=== PATIENT | female | born 1950 | race Caucasian/White ===

== ENCOUNTER → 2018-03-20 08:46 | Outpatient (CLI) | payer MEDICARE, SELFPAY ==
[2018-03-20 10:15] LABS: Absolute Lymphocyte Count 1.19 X10^3/ul (0.83-4.51); Absolute Neutrophil Count 4.3 X10^3/uL (2.0-7.7); Basophil# 0.05 X10^3/uL; Basophil% 0.8 % (0-1); Eosinophil# 0.13 X10^3/uL; Eosinophils% 2.1 % (0-5); Hematocrit 41.9 % (37-47); Hemoglobin 13.8 g/dl (12.0-15.0); Lymphocyte # 1.19 X10^3/ul (4.0); Lymphocyte % 19.3 % (19-41); Mean Corp Hgb Conc 32.9 g/gl (32-36); Mean Corpuscular Hgb 31.7 pg (27.0-32.0); Mean Corpuscular Volume 96.1 fL (81-99); Mean Platelet Vol. 11.1 fl (6.2-12.0); Monocyte% 8.1 % (0-10); Neutrophil # 4.27 X10^3/uL (2.7-7.7); Neutrophil % 69.5 % (47-70); Platelet Count 231 K/mm3 (150-450); RBC Distribution Width CV 12.6 % (11.6-14.6); RBC Distribution Width SD 43.5 fl (35.1-43.9); Red Blood Count 4.36 M/mm3 (4.2-5.4); White Blood Count 6.2 K/mm3 (4.4-11.0)
[2018-03-20 10:27] LABS: AST(SGOT) 27 U/L (15-37); Alanine Aminotransfer ALT/SGPT 28 U/L (13-56); Albumin, Serum 3.7 g/dL (3.2-5.0); Alkaline Phosphatase 81 U/L (45-117); Anion Gap 6 (5-15); BUN 14 mg/dL (7-18); BUN/Creat Ratio 20.3 RATIO (10-20); Bilirubin, Direct 0.16 mg/dL (0.00-0.30); Calcium,Total 8.8 mg/dL (8.5-10.1); Chloride 108 mmol/L (98-107); Cholesterol 154 mg/dL (200); Creatinine, Serum 0.69 mg/dL (0.55-1.02); EST Glomerular Filtration Rate 90 mL/min (>60); Est Glom Filt Rate - Afr Amer 108 mL/min (>60); Globulin 3.9 g/dL (2.2-4.2); Glucose 84 mg/dL (74-106); High Density Lipoprotein 93 mg/dL; Potassium 4.3 mmol/L (3.5-5.1); Protein, Total 7.6 g/dL (6.4-8.2); Sodium Level 142 mmol/L (136-145); Triglycerides 57 mg/dL; Very Low Density Lipoprotein 11 mg/dL (5-40)
[2018-03-20 10:32] LABS: POSITIVE COUNT NO; POSITIVE DIFFERENTIAL NO; POSITIVE MORPHOLOGY NO
[2018-03-20 13:18] LABS: Vitamin D,25 Hydroxy 60.8 ng/mL (29.95-100.01)
== END ==
PROVIDERS: Family Provider Internal Medicine; PCP Internal Medicine; Visit Provider Internal Medicine
DX: E55.9 Vitamin D deficiency, unspecified (principal); E78.00 Pure hypercholesterolemia, unspecified
CPT/HCPCS: 36415; 80048; 80061; 80076; 82306; 85025

== ENCOUNTER → 2018-05-12 13:58 | Outpatient (CLI) | payer MEDICARE, SELFPAY | PROVIDERS: Family Provider Internal Medicine; PCP Internal Medicine; Visit Provider Internal Medicine | DX: M54.5 Low back pain (principal); M25.551 Pain in right hip | CPT/HCPCS: 72110; 73502 ==

== ENCOUNTER → 2018-08-05 14:54 | Outpatient (CLI) | payer MEDICARE, SELFPAY ==
[2018-06-10 13:24] VITALS: BMI 20.5
--- NOTE | 2018-08-05 14:56 | BD_ITS ---
STUDY: DUAL ENERGY X-RAY ABSORPTIOMETRY / DXA REASON FOR EXAM: Female, 68 years old. The patient is postmenopausal. No loss of height. TECHNIQUE: Bone Mineral Density (BMD) measurements of lumbar spine and bilateral hips were obtained. COMPARISON: Comparison is made with prior study dated July 26, 2016. FINDINGS: Lumbar Spine (L1-L4): g/cm2 (1.445) / T-score (2.0) / Z-score (3.7) Findings are suggestive of normal bone density with a low fracture risk. Left Femur Total: g/cm2 (0.758) / T-score (-2.0) / Z-score (-0.5) Left Femoral Neck: g/cm2 (0.834) / T-score (-1.5) / Z-score (0.2) Right Femur Total: g/cm2 (0.764) / T-score (-1.9) / Z-score (-0.5) Right Femoral Neck: g/cm2 (0.743) / T-score (-2.1) / Z-score (-0.4) The T-Scores on the most recent prior examination were: Lumbar Spine (L1-L4): There has been improvement of bone density since the previous examination. Left Femur Total: which represents a worsening of 3.9%. Right Femur Total: which represents a worsening of 4.4%. BD/Dexa Bone Density Study IMPRESSION: The patient is considered osteopenic as outlined below according to World [place] Organization (WHO) criteria with a moderate fracture risk. There has been worsening of bone density since the previous examination. Reference Information: The T-score is the number of standard deviations above or below the standard which is normal for young adults at their peak bone mineral density. The World Health Organization (WHO) interprets the T-scores as follows: Above -1 Normal bone density Between -1 and -2.5 Osteopenia Equal to / or below -2.5 Osteoporosis As a practical clinical guideline, osteopenia may be graded as follows: Mild -1 through -1.5 Moderate -1.6 through -2.0 Severe -2.1 through -2.4 The Z-score is the number of standard deviations above or below age-matched controls. A Z-score of less than -1.5 would be considered abnormal. References: 1. NIH Osteoporosis and Related Bone Diseases http://www.osteo.org 2. International Society for Clinical Densitometry http://www.iscd.org 3. National Osteoporosis Foundation http://www.nof.org Electronically Signed: Main Owen MD at 7:55 EST Tel [phone], Service support ,
== END ==
PROVIDERS: Family Provider Internal Medicine; PCP Internal Medicine; Referring Provider Internal Medicine; Visit Provider Internal Medicine
DX: Z78.0 Asymptomatic menopausal state (principal)
CPT/HCPCS: 77080

== ENCOUNTER → 2018-08-08 13:10 | Outpatient (CLI) | payer MEDICARE, SELFPAY ==
[2018-06-10 13:24] VITALS: BMI 20.5
--- NOTE | 2018-08-08 12:55 | BI_ITS ---
MAMMOGRAPHY - BILATERAL SCREENING REASON FOR EXAM: Female, 68 years old. Routine annual screening examination. PERTINENT HISTORY: Non-contributory. TECHNIQUE: Digital bilateral breast riley (3D mammographic acquisition) in the CC and MLO projections. 2-D mediolateral oblique (MLO) and craniocaudad (CC) views of both breasts were obtained. CAD: Full Field Digital Mammography with Computer Added Detection was performed. COMPARISON: Comparison is made with prior study dated August 06, 2017 and May 31, 2016. FINDINGS: Breast Composition: There are scattered areas of fibroglandular density. There are no dominant masses or suspicious calcifications. Stable 3.9 mm x 2.8 mm well-defined nodule in the deep slightly lateral portion of the left breast. On prior ultrasound, this was demonstrated to be a small hypoechoic nodule. No other significant abnormalities are identified. There has been no significant change since the prior study. BI/SCREENING MAMM (CAD), BILAT IMPRESSION: Stable bilateral screening mammogram. Yearly follow-up mammogram recommended. (A) ASSESSMENT CATEGORY: BIRADS Category 2: Benign. A letter regarding these results will be sent to the patient by the facility within 30 days. Approximately 10% of breast cancers are not detected by mammography. A normal mammogram should not delay biopsy of a clinically suspicious abnormality. [id number] Electronically Signed: Main Owen MD at 9:38 EST Tel [phone], Service support ,
== END ==
PROVIDERS: Family Provider Internal Medicine; PCP Internal Medicine; Referring Provider Nurse Practitioner Women's Health; Visit Provider Nurse Practitioner Women's Health
DX: Z12.31 Encounter for screening mammogram for malignant neoplasm of breast (principal)
CPT/HCPCS: 77063; 77067

== ENCOUNTER 2019-04-29 09:54 | Outpatient (RCR) | payer MEDICARE, SELFPAY ==
[2019-01-13 13:23] VITALS: BMI 20.5
--- NOTE | 2019-04-29 10:58 | HP.PTEVAL_ITS ---
Patient's Visit Information LONNIE GIBBONS is a 68 year old F referred to Physical Therapy by Leanna Lane MD with a diagnosis of L sciatica. Date of Evaluation: 04/29/19 Physical Therapist: Brennen Calvert, MORGAN, OCS, CSCS - Visit Plan Frequency: 1x/Week Duration: 4-6 Weeks Plan: weekly x 4-6 to progress HEP(gave LE rotation and ext this week) progress to quad and HS and core strength adn body mechanics. Next bugs and quad and HS strength. - Subjective Findings: Have had diagnosis of sciatica for pain that has been present about a month. She was working outside and LB hurt. Chiropractor visit helped. She lifted and carried up steps the next day and strained things. L leg is numb for a month. Not bad but doesn't feel right consistently. Pain is L laeral hip and in LB and can be L groin at times. Saw Dr. Finch last week and will have Catscan and Latonia visit due to hernia surgery last year to make sure it is fine. Pain is constant. It was severe a month ago and could not stand up 8- 10/10 at all times. She was given oxycodone and naproxen. Has tried heat and ice adn acupuncture. Currently at 4/10 constantly. L leg feels weak. Pain is improving, weakness and numbness is not. Sleep is OK now. More comfortable now. HEP is doing decompression lying, piriformis stretch. Not employed. Enjoys outdoor work 5 acres and is unable to be out there due to this. Basic aDLS are getting done now, they were rough at first. Stretching last night made pain worse, upper body stretching. No problems with coughing or sneezing or bearing down, no c/o urinary problems. - Pain L LB and hip Pain Intensity (Out of 10): 4 Pain Intensity Range: 4 - Objective Walks stiff but I, trasnfers I supine and sit(says she would not have been able to a couple weeks ago). L/S ext max limited adn L pain, L SB hurts, R SB normal, flexion full and without pain today. reflexes 2/3 patella and achilles. Sensation diminished to gross light touch in later thigh L. Strength is 4/5 in hips and 4+ in ankles B but L quad 4- adn HS 4- vs 4+ on R. Repeated ext increases motion slightly in L/S. - L S compression test today. - Goals Goal 1:: Ful lL/S aROM without pain Goal Time Frame: 2-4 Weeks Goal 2:: symmetrical quad and HS strength B LE Goal Time Frame: 4-6 Weeks Goal 3:: Patient feel 90% back to normal with pain 1/10 at worst Goal Time Frame: 4-6 Weeks Goal 4:: Patient feel back to 100% activities without hesitation or pain increase. Goal Time Frame: 4-6 Weeks - Rehabilitation Potential Physical Therapy Diagnosis: L sciatica with leg weakness. Rehabilitation Potential: Fair - Anticipated Interventions Patient/Client Instruction: Educate patient on: Condition, Plan of Care For the Purpose of:: To decrease pain, To increase ROM, To improve muscle performance and motor function, To improve ability of physical actions for home/community/work/leisure, To improve gait and locomotor functions Therapeutic Exercise to Include: Strength training, Postural training, Flexibilty training, Gait and locomotor training, Passive ROM, Active ROM For the Purpose of:: To decrease pain, To increase ROM, To improve muscle performance and motor function, To improve ability of physical actions for home/community/work/leisure, To improve gait and locomotor functions Thank you for the opportunity to evaluate your patient. For Medicare and Medicare HMO plans, please review the plan of care and approve it. It will need to be FAXED BACK to us at [phone] for Medicare purposes. For Medicare only, by signing this I certify the plan of care. Please let me know if there are questions or concerns regarding this plan of care. Physician Signature: Date:
--- NOTE | 2019-06-10 12:09 | HP.PTDCNRP_ITS ---
HP - Discharge Summary (1) - Patient Information LONNIE GIBBONS was seen in my office for initial evaluation on 04/29/19. The following Plan of Care was established for this patient: Initial Frequency: 1x/Week Initial Duration: 4-6 Weeks - Anticipated Interventions Patient/Client Instruction: Educate patient on: Condition, Plan of Care For the Purpose of:: To decrease pain, To increase ROM, To improve muscle perfo rmance and motor function, To improve ability of physical actions for home/community/work/leisure, To improve gait and locomotor functions Therapeutic Exercise to Include: Strength training, Postural training, Flexibilty training, Gait and locomotor training, Passive ROM, Active ROM For the Purpose of:: To decrease pain, To increase ROM, To improve muscle performance and motor function, To improve ability of physical actions for home/community/work/leisure, To improve gait and locomotor functions This patient was last seen in our office 04/29/19. Pertinent comments regarding their Physical therapy will appear below: Pt seen for evaluation and POC established but patient cancelled and did not wish to reschedule. Will discontinue at patient request. At this point I will be discontinuing this patient from physical therapy. I would be happy to see this patient again in the future if found appropriate by the physician. Thank you! Brennen Calvert, DPT, OCS, CSCS
== END 2019-04-29 19:00 | disposition home or self-care (01) ==
LOC: PT 09:54
PROVIDERS: Family Provider Internal Medicine; PCP Internal Medicine; Referring Provider Internal Medicine; Visit Provider Internal Medicine
DX: M54.32 Sciatica, left side (principal)
CPT/HCPCS: 97110; 97162

== ENCOUNTER → 2019-05-04 | Outpatient (CLI) | payer MEDICARE, SELFPAY ==
[2019-01-13 13:23] VITALS: BMI 20.5
--- NOTE | 2019-05-04 15:59 | CT_ITS ---
HISTORY:LT GROIN PAIN into left hip x one month. Hx of prior bilateral inguinal hernia repair 4 yr ago. LT GROIN PAIN into left hip x one month. Hx of prior bilateral inguinal hernia repair 4 yr ago. EXAMINATION: CT Pelvis W/ Contrast TECHNIQUE:Routine noncontrast bone CT protocol was performed of the pelvis. 2-D reformats were performed by the technologist. A radiation dose optimization technique was used for this scan. IV Contrast dosage and agent: 100 cc of Isovue-300 Oral contrast was utilized. COMPARISON: None FINDINGS: BONES/JOINTS: No acute fracture or subluxation. Normal alignment. There is mild central joint space narrowing bilaterally involving the hips. There is a prominent superior right acetabulum as well as calcification of a portion of the transverse ligament. Bone island seen at the right head neck junction Enthesophytes are seen at the ischial tuberosities as well as at the greater trochanters.. Degenerative changes are seen within the lumbar spine with decreased disc space at L3-4, L4-5 and L5-S1. Suspect dextroscoliosis of the lumbar spine and incompletely visualized SOFT TISSUES: No soft tissue swelling or gas. No radiopaque foreign body. Intrapelvic contents: There is no evidence of aneurysm. No mechanical obstruction. No diverticulitis. Left adnexal cyst measuring [address]/Pelvis WITH IV Contrast IMPRESSION: Degenerative changes of the hips greater on the right as discussed Left adnexal cyst Individualized dose optimization techniques were used for this CT. at 1941 Reported and signed by: Adenike Barone DO Electronically Signed: Adenike Barone DO at 18:40 EDT Tel , Service support ,
[2019-05-04 16:16] LABS: CREATININE FINGERSTICK < 0.6 mg/dL (0.55-1.02)
== END | disposition home or self-care (01) ==
LOC: CT 15:54
PROVIDERS: Family Provider Internal Medicine; PCP Internal Medicine; Referring Provider Internal Medicine; Visit Provider Internal Medicine
DX: R10.32 Left lower quadrant pain (principal)
CPT/HCPCS: 72193; Q9967

== ENCOUNTER → 2019-05-12 | Outpatient (CLI) | payer MEDICARE, SELFPAY ==
[2019-05-05 08:49] VITALS: BMI 20.3
[2019-05-12 12:15] LABS: Absolute Lymphocyte Count 1.13 X10^3/uL (0.83-4.51); Absolute Neutrophil Count 6.2 X10^3/uL (2.0-7.7); Basophil# 0.05 X10^3/uL; Basophil% 0.6 % (0-1); Eosinophil# 0.09 X10^3/uL; Eosinophils% 1.1 % (0-5); Hematocrit 43.4 % (37-47); Hemoglobin 14.4 g/dL (12.0-15.0); Lymphocyte # 1.13 X10^3/ul (4.0); Lymphocyte % 14.2 % (19-41); Mean Corp Hgb Conc 33.2 g/dL (32-36); Mean Corpuscular Hgb 32.4 pg (27.0-32.0); Mean Corpuscular Volume 97.5 fL (81-99); Mean Platelet Vol. 10.9 fl (6.2-12.0); Monocyte# 0.47 X10^3/uL; Monocyte% 5.9 % (0-10); NRBC Flagged by Analyzer 0 % (0-5); Neutrophil % 78.1 % (47-70); Platelet Count 266 K/mm3 (150-450); RBC Distribution Width CV 12.2 % (11.6-14.6); Red Blood Count 4.45 M/mm3 (4.2-5.4)
[2019-05-12 12:40] LABS: ALB/GLOB Ratio 0.9 RATIO (0.9-2.4); AST(SGOT) 23 U/L (15-37); Alanine Aminotransfer ALT/SGPT 27 U/L (13-56); Albumin, Serum 3.8 g/dL (3.2-5.0); Alkaline Phosphatase 73 U/L (45-117); Anion Gap 5 (5-15); BUN 15 mg/dL (7-18); BUN/Creat Ratio 21.7 RATIO (10-20); Calcium,Total 9.4 mg/dL (8.5-10.1); Chloride 107 mmol/L (98-107); Creatinine, Serum 0.69 mg/dL (0.55-1.02); EST Glomerular Filtration Rate 89 mL/min (>60); Est Glom Filt Rate - Afr Amer 108 mL/min (>60); Globulin 4.3 g/dL (2.2-4.2); Glucose 91 mg/dL (74-106); Protein, Total 8.1 g/dL (6.4-8.2); Sodium Level 140 mmol/L (136-145)
[2019-05-12 12:49] LABS: Vitamin D,25 Hydroxy 52.4 ng/mL (29.95-100.01)
[2019-05-13 15:28] LABS: CHOLESTEROL TOTAL 172 mg/dL (100-199); HDL-C 87 mg/dL (>39); HDL-P TOTAL 38.3 umol/L (>=30.5); SMALL LDL-P <90 nmol/L (<=527); TRIGLYCERIDES 104 mg/dL (0-149)
[2019-05-13 16:47] LABS: INSULIN RESISTANCE SCORE <25 (<=45); LDL SIZE 21.1 nm (>20.5); LDL-C 64 mg/dL (0-99); LDL-P 506 nmol/L (<1000)
== END | disposition home or self-care (01) ==
LOC: MTLAB 10:20
PROVIDERS: Family Provider Internal Medicine; PCP Internal Medicine; Referring Provider Internal Medicine; Visit Provider Internal Medicine
DX: E55.9 Vitamin D deficiency, unspecified (principal); E78.00 Pure hypercholesterolemia, unspecified
CPT/HCPCS: 36415; 80053; 80061; 82306; 83704; 85025

== ENCOUNTER → 2019-06-15 | Outpatient (CLI) | payer MEDICARE, SELFPAY ==
[2019-05-05 08:49] VITALS: BMI 20.3
[2019-06-15 13:04] VITALS: BMI 20.3
--- NOTE | 2019-06-15 13:37 | ECHOD_ITS ---
Reason For Study: RBBB Procedure This was a 2D Doppler, Color Flow transthoracic echocardiogram. Exam performed in department. Left Ventricle Normal LV size. Left ventricular systolic function is normal. The estimated ejection fraction is 65 %. Stage 2 diastolic dysfunction. No regional wall motion abnormalities noted. Right Ventricle Normal RV size. Normal systolic function. Atria Normal left atrium. Normal right atrium. Mitral Valve Normal mitral valve. Tricuspid Valve Normal tricuspid valve. Mild (1+) tricuspid valve insufficiency. Pulmonary artery systolic pressure is 38 mmHg. Aortic Valve Normal aortic valve. Trisinus/trileaflet aortic valve. Pulmonic Valve Normal pulmonic valve. Great Vessels Normal aortic root. The pulmonary artery is normal size. Normal inferior vena cava. Pericardium/Pleural No pericardial effusion. MMode/2D Measurements & Calculations LVIDd: 3.8 cm IVSd: 1.2 cm Ao root diam: 2.8 cm LVIDs: 2.2 cm LVPWd: 0.93 cm RVDd: 3.4 cm FS: 42.6 % LAV(MOD-bp): 30.5 ml LVAd ap4: 21.4 cm2 SV(MOD-sp4): 37.9 ml LAV(MOD-bp) Indexed: 18.1 ml/m2 EDV(MOD-sp4): 54.8 ml LAV(MOD-sp2): 47.3 ml EDV(sp4-el): 55.5 ml LAV(MOD-sp4): 19.4 ml LVAs ap4: 10.5 cm2 ESV(MOD-sp4): 16.9 ml ESV(sp4-el): 17.0 ml EF(MOD-sp4): 69.2 % EF(sp4-el): 69.4 % SV(sp4-el): 38.5 ml LA A4 area: 10.7 cm2 LA dimension(2D): 3.6 cm RA A4 area: 13.5 cm2 Doppler Measurements & Calculations MV E max jeffy: 83.6 cm/sec Lat Peak E' Jeffy: 6.9 cm/sec Med Peak E' Jeffy: 5.7 cm/sec MV A max jeffy: 99.2 cm/sec E/E' lat: 12.1 E/E' med: 14.6 MV E/A: 0.84 Ao V2 max: 143.7 cm/sec LV V1 max: 123.2 cm/sec PA V2 max: 101.9 cm/sec Ao max P.3 mmHg LV V1 max P.1 mmHg Ao V2 mean: 97.1 cm/sec Ao mean P.2 mmHg Ao V2 VTI: 32.7 cm TR max jeffy: 293.7 cm/sec TR max P.5 mmHg Interpretation Summary Normal LV size. Left ventricular systolic function is normal. Mild (1+) tricuspid valve insufficiency. Pulmonary artery systolic pressure is 38 mmHg. The estimated ejection fraction is 65 %. Stage 2 diastolic dysfunction. Ordering Physician: Alison Finch Referring Physician: Alison Finch Performed By: Maru Noland, MEGHA, RVT
--- NOTE | 2019-06-15 13:48 | RAD_ITS ---
STUDY: X-RAY CHEST REASON FOR EXAM: Female, 68 years old. Normal PFTs. TECHNIQUE: PA and lateral views of the chest. COMPARISON: June 05, 2016 FINDINGS: Lungs are hyperexpanded. There is chronic interstitial changes without acute infiltrate or mass. There is no demonstrated pleural abnormality. Normal size heart. Normal mediastinum and rosalind. Normal visualized pulmonary arteries. Normal visualized aortic arch and descending thoracic aorta. Stable degenerative changes and scoliosis Normal visualized ribs, clavicles, and shoulders. There is no demonstrated abnormality of the visualized soft tissue structures of the upper abdomen. RAD/Chest PA and Lateral IMPRESSION: No acute cardiopulmonary disease or major interval change. Electronically Signed: Og Han DO at 22:59 EDT Tel [phone], Service support ,
== END | disposition home or self-care (01) ==
LOC: CVS 13:35
PROVIDERS: Family Provider Internal Medicine; PCP Internal Medicine; Referring Provider Internal Medicine; Visit Provider Internal Medicine
DX: I45.2 Bifascicular block (principal); R94.2 Abnormal results of pulmonary function studies
CPT/HCPCS: 71046; 93306

== ENCOUNTER → 2019-08-10 12:51 | Outpatient (CLI) | payer MEDICARE, SELFPAY ==
[2019-06-15 13:04] VITALS: BMI 20.3
--- NOTE | 2019-08-10 12:53 | BI_ITS ---
MAMMOGRAPHY - BILATERAL SCREENING 3-D TOMOSYNTHESIS REASON FOR EXAM: Female, 69 years old. Routine annual screening examination. PERTINENT HISTORY: No significant family history. TECHNIQUE: 2-D mammograms and 3-D Tomosynthesis of the breast (s) were performed. CAD was performed. COMPARISON: August 08, 2018, August 06, 2017 FINDINGS: The breast composition is almost entirely fat. Stable circumscribed nodule in the left breast. Scattered benign calcifications are seen. No dense spiculated masses or suspicious microcalcifications are identified. No architectural distortion is identified. There is no skin thickening or retraction. There has been no significant change since the prior study. BI/SCREEN MAMM (CAD) W/JUAN J BILAT IMPRESSION: No mammographic signs of malignancy. Routine yearly mammograms recommended. ASSESSMENT CATEGORY: BIRADS Category 2: Benign. A letter regarding these results will be sent to the patient by the facility within 30 days. FOLLOW UP RECOMMENDATION: Yearly follow up mammogram recommended. (A) Approximately 10% of breast cancers are not detected by mammography. A normal mammogram should not delay biopsy of a clinically suspicious abnormality. Electronically Signed: Nolberto Lew MD at 17:37 EST , Service support ,
== END ==
PROVIDERS: Family Provider Internal Medicine; PCP Internal Medicine; Referring Provider Nurse Practitioner Women's Health; Visit Provider Nurse Practitioner Women's Health
DX: Z12.31 Encounter for screening mammogram for malignant neoplasm of breast (principal)
CPT/HCPCS: 77063; 77067

== ENCOUNTER 2019-10-20 09:30 | Outpatient (RCR) | payer MEDICARE, SELFPAY ==
[2019-06-15 13:04] VITALS: BMI 20.3
--- NOTE | 2019-10-05 15:37 | HP.PTEVAL ---
Patient's Visit Information LONNIE GIBBONS is a 69 year old F referred to Physical Therapy by Mark Moncada DPM with a diagnosis of R insertional achilles tendonitis. Date of Evaluation: 10/05/19 Physical Therapist: Stephane Fontenot, PT, ATC - Visit Plan Frequency: 2-3x /Week Duration: 4 Weeks Plan: R achilles stretching, DTR, foam roller, US, and HEP - Subjective Findings: Pt reports she has had R heel pain for several months. Pt reports she finally went to a doctor and had xrays taken which revealed a bone spur on the back of her R heel. Pt reports she was told she needed a steroid injection, but due to other health concerns, she was given Mobic which has helped to decrease her pain. Pt reports she has also been stretching which has helped her pain. Pt reports her hope is to be able to avoid surgery. Pt reports she is not limited with most acivity, but does note pain with prolonged walking. Pt reports her pain is also worse by the end of the day without pain meds. Pt notes sleep difficulty without pain meds. - Pain R post heel Pain Intensity (Out of 10): 3 Pain Intensity Range: 6 - Objective Neuro: B LE sensation is WNL to light touch. Palpation: Pt is very tender on the calcaneal tuberocity. No obvious deformity. ROM: L ankle DF= 5, PF= 60 degrees, R ankle DF= 3, PF= 60 degrees. MMT: B ankle s are 5/5 throughout. Gait: Pt has late pronation with gait secondary to pes cavus arch type - Goals Goal 1:: Decrease R heel pain x 50% to aid with increasing tolerance for ambulation Goal Time Frame: 2-4 Weeks Goal 2:: Increase B ankle DF x 10 degrees to aid with decreasing R heel pain Goal Time Frame: 2-4 Weeks Goal 3:: I with HEP Goal Time Frame: 2-4 Weeks - Rehabilitation Potential Physical Therapy Diagnosis: R heel pain and intolerance for prolonged ambulation secondary to R insertional achilles tendonitis Rehabilitation Potential: Good - Anticipated Interventions Patient/Client Instruction: Educate patient on: Condition, Plan of Care For the Purpose of:: To improve self management Therapeutic Exercise to Include: Flexibilty training, Passive ROM, Active ROM For the Purpose of:: To decrease pain, To increase ROM Manual Therapy Techniques to Include: Soft tissue mobilization For the Purpose of:: To decrease pain, To increase ROM Ultrasound (thermal/non thermal): Yes For the Purpose of:: To decrease pain Thank you for the opportunity to evaluate your patient. For Medicare and Medicare HMO plans, please review the plan of care and approve it. It will need to be FAXED BACK to us at [phone] for Medicare purposes. For Medicare only, by signing this I certify the plan of care. Please let me know if there are questions or concerns regarding this plan of care. Physician Signature: Date:
--- NOTE | 2019-12-17 18:45 | HP.PT.NRP ---
LONNIE GIBBONS was seen in my office for initial evaluation on 10/05/19. The following Plan of Care was established for this patient: Initial Frequency: 2-3x /Week Initial Duration: 4 Weeks Patient/Client Instruction: Educate patient on: Condition, Plan of Care For the Purpose of:: To improve self management Therapeutic Exercise to Include: Flexibilty training, Passive ROM, Active ROM For the Purpose of:: To decrease pain, To increase ROM Manual Therapy Techniques to Include: Soft tissue mobilization For the Purpose of:: To decrease pain, To increase ROM Ultrasound (thermal/non thermal): Yes For the Purpose of:: To decrease pain This patient was last seen in our office . Pertinent comments regarding their Physical therapy will appear below: Pt has had 5 PT visits for her R heel pain through the date of 10/20/2019. Pt has not returned through todays date and is therefore discontinued at this time. At this point I will be discontinuing this patient from physical therapy. I would be happy to see this patient again in the future if found appropriate by the physician. Thank you! Stephane Fontenot, PT, ATC
== END 2019-10-20 19:00 | disposition home or self-care (01) ==
LOC: PT 09:30
PROVIDERS: PCP Internal Medicine; Referring Provider Podiatrist Foot & Ankle Surgery; Visit Provider Podiatrist Foot & Ankle Surgery
DX: M76.61 Achilles tendinitis, right leg (principal)
CPT/HCPCS: 97035; 97110; 97161

== ENCOUNTER → 2020-05-18 07:59 | Outpatient (CLI) | payer MEDICARE, SELFPAY ==
[2019-06-15 13:04] VITALS: BMI 20.3
[2020-05-18 10:04] LABS: Absolute Lymphocyte Count 1.19 X10^3/uL (0.83-4.51); Absolute Neutrophil Count 2.9 X10^3/uL (2.0-7.7); Basophil# 0.06 X10^3/uL; Basophil% 1.2 % (0-1); Eosinophil# 0.18 X10^3/uL; Eosinophils% 3.7 % (0-5); Hematocrit 41.2 % (37-47); Hemoglobin 13.1 g/dL (12.0-15.0); Lymphocyte # 1.19 X10^3/ul (4.0); Lymphocyte % 24.7 % (19-41); Mean Corp Hgb Conc 31.8 g/dL (32-36); Mean Corpuscular Hgb 31.6 pg (27.0-32.0); Mean Corpuscular Volume 99.5 fL (81-99); Mean Platelet Vol. 11.3 fl (6.2-12.0); Monocyte# 0.48 X10^3/uL; NRBC Flagged by Analyzer 0 % (0-5); Neutrophil # 2.89 X10^3/uL (2.7-7.7); Neutrophil % 60.2 % (47-70); Platelet Count 235 K/mm3 (150-450); RBC Distribution Width CV 12.5 % (11.6-14.6); RBC Distribution Width SD 45.7 fl (35.1-43.9); Red Blood Count 4.14 M/mm3 (4.2-5.4); White Blood Count 4.8 K/mm3 (4.4-11.0)
[2020-05-18 10:28] LABS: Vitamin D,25 Hydroxy 66.6 ng/mL
[2020-05-18 10:39] LABS: ALB/GLOB Ratio 0.9 RATIO (0.9-2.4); AST(SGOT) 29 U/L (15-37); Alanine Aminotransfer ALT/SGPT 30 U/L (13-56); Albumin, Serum 3.6 g/dL (3.2-5.0); Alkaline Phosphatase 67 U/L (45-117); Anion Gap 3 (5-15); BUN 16 mg/dL (7-18); BUN/Creat Ratio 21.1 RATIO (10-20); Calcium,Total 8.8 mg/dL (8.5-10.1); Chloride 106 mmol/L (98-107); Cholesterol 158 mg/dL (200); Creatinine, Serum 0.76 mg/dL (0.55-1.02); EST Glomerular Filtration Rate 80 mL/min (>60); Est Glom Filt Rate - Afr Amer 96 mL/min (>60); Globulin 4.1 g/dL (2.2-4.2); Glucose 81 mg/dL (74-106); High Density Lipoprotein 94 mg/dL; Protein, Total 7.7 g/dL (6.4-8.2); Sodium Level 139 mmol/L (136-145); Thyroid Stim Hormone (TSH) 1.65 uIU/mL (0.358-3.74); Triglycerides 67 mg/dL; Very Low Density Lipoprotein 13 mg/dL (5-40)
== END ==
PROVIDERS: PCP Internal Medicine; Referring Provider Internal Medicine; Visit Provider Internal Medicine
DX: E55.9 Vitamin D deficiency, unspecified (principal); E78.00 Pure hypercholesterolemia, unspecified
CPT/HCPCS: 36415; 80053; 80061; 82306; 84443; 85025

== ENCOUNTER → 2020-08-09 13:11 | Outpatient (CLI) | payer MEDICARE, SELFPAY ==
[2019-06-15 13:04] VITALS: BMI 20.3
--- NOTE | 2020-08-09 13:21 | BD_ITS ---
STUDY: DUAL ENERGY X-RAY ABSORPTIOMETRY / DXA REASON FOR EXAM: Female, 70 years old. Age of claribel 48. Pat is 128# and 65.5 and quot; a loss of .5 and quot; per pat. Past hx of taking an HRT. Past hx of using Actonel for 5+ yrs, no longer taking. Has had steroid eye injections. Takes 600mg of calcium. Exercises moderately. TECHNIQUE: Bone Mineral Density (BMD) measurements of lumbar spine and bilateral hips were obtained. COMPARISON: Comparison is made with prior study dated 08/05/2018. FINDINGS: Lumbar Spine (L1-L4): g/cm2 (1.028) / T-score (-1.1) / Z-score (0.6) Findings are suggestive of osteopenia with a low fracture risk. Left Femur Total: g/cm2 (0.802) / T-score (-1.6) / Z-score (-0.1) Left Femoral Neck: g/cm2 (0.780) / T-score (-1.9) / Z-score (-0.1) Right Femur Total: g/cm2 (0.789) / T-score (-1.7) / Z-score (-0.2) Right Femoral Neck: g/cm2 (0.869) / T-score (-1.2) / Z-score (0.6) The T-Scores on the most recent prior examination were: Lumbar Spine (L1-L4): There has been worsening of bone density since the previous examination. Left Femur Total: which represents an improvement of 5.8%. Right Femur Total: which represents an improvement of 3.3%. BD/Dexa Bone Density Study IMPRESSION: The patient is considered osteopenic as outlined below according to World [place] Organization (WHO) criteria with a moderate fracture risk. There has been improvement of bone density since the previous examination. Reference Information: The T-score is the number of standard deviations above or below the standard which is normal for young adults at their peak bone mineral density. The World Health Organization (WHO) interprets the T-scores as follows: Above -1 Normal bone density Between -1 and -2.5 Osteopenia Equal to / or below -2.5 Osteoporosis As a practical clinical guideline, osteopenia may be graded as follows: Mild -1 through -1.5 Moderate -1.6 through -2.0 Severe -2.1 through -2.4 The Z-score is the number of standard deviations above or below age-matched controls. A Z-score of less than -1.5 would be considered abnormal. References: 1. NIH Osteoporosis and Related Bone Diseases www osteo.org 2. International Society for Clinical Densitometry www iscd.org 3. National Osteoporosis Foundation www nof.org Electronically Signed: Main Owen, at 9:41 EST , Service support ,
== END ==
PROVIDERS: PCP Internal Medicine; Referring Provider Internal Medicine; Visit Provider Internal Medicine
DX: Z78.0 Asymptomatic menopausal state (principal)
CPT/HCPCS: 77080

== ENCOUNTER → 2020-08-15 12:32 | Outpatient (CLI) | payer MEDICARE, SELFPAY ==
[2019-06-15 13:04] VITALS: BMI 20.3
--- NOTE | 2020-08-15 12:35 | BI_ITS ---
MAMMOGRAPHY - BILATERAL SCREENING REASON FOR EXAM: Female, 70 years old. Routine annual screening examination. PERTINENT HISTORY: Non-contributory. TECHNIQUE: Digital bilateral breast juan j (3D mammographic acquisition) in the CC and MLO projections. 2-D mediolateral oblique (MLO) and craniocaudad (CC) views of both breasts were obtained. CAD: Full Field Digital Mammography with Computer Added Detection was performed. COMPARISON: Comparison is made with prior study dated 08/10/2019 and 08/08/2018. FINDINGS: Breast Composition: The breasts are almost entirely fatty. There are no dominant masses or suspicious calcifications. Stable 3.9 mm x 2.8 mm well-defined nodule in the deep slightly lateral portion of the left breast. No other significant abnormalities are identified. There has been no significant change since the prior study. BI/SCREEN MAMM (CAD) W/JUAN J BILAT IMPRESSION: Stable bilateral screening mammogram. Yearly follow-up mammogram recommended. (A) ASSESSMENT CATEGORY: BIRADS Category 2: Benign. A letter regarding these results will be sent to the patient by the facility within 30 days. Approximately 10% of breast cancers are not detected by mammography. A normal mammogram should not delay biopsy of a clinically suspicious abnormality. [id number] Electronically Signed: Main Owen, at 14:42 EST , Service support ,
== END ==
PROVIDERS: PCP Internal Medicine; Referring Provider Nurse Practitioner Women's Health; Visit Provider Nurse Practitioner Women's Health
DX: Z12.31 Encounter for screening mammogram for malignant neoplasm of breast (principal)
CPT/HCPCS: 77063; 77067

== ENCOUNTER → 2022-02-19 | Outpatient (CLI) | payer MEDICARE, SELFPAY ==
--- NOTE | 2022-02-19 10:17 | BI_ITS ---
MAMMOGRAPHY - BILATERAL SCREENING REASON FOR EXAM: Female, 71 years old. Routine annual screening examination. PERTINENT HISTORY: Non-contributory. TECHNIQUE: Digital bilateral breast juan j (3D mammographic acquisition) in the CC and MLO projections. 2-D mediolateral oblique (MLO) and craniocaudad (CC) views of both breasts were obtained. CAD: Full Field Digital Mammography with Computer Added Detection was performed. COMPARISON: Comparison is made with prior study dated 08/15/2020 and 08/10/2019. FINDINGS: Breast Composition: There are scattered areas of fibroglandular density. There are no dominant masses or suspicious calcifications. No other significant abnormalities are identified. There has been no significant change since the prior study. BI/SCRN MAMM (CAD)W/JUAN J BILAT IMPRESSION: Stable bilateral screening mammogram. Yearly follow-up mammogram recommended. (A) ASSESSMENT CATEGORY: BIRADS Category 1: Negative. A letter regarding these results will be sent to the patient by the facility within 30 days. Approximately 10% of breast cancers are not detected by mammography. A normal mammogram should not delay biopsy of a clinically suspicious abnormality. [id number] Electronically Signed: Main Owen MD at 12:32 EDT ,
== END | disposition home or self-care (01) ==
PROVIDERS: PCP Internal Medicine; Referring Provider Nurse Practitioner Women's Health; Visit Provider Nurse Practitioner Women's Health
DX: Z12.31 Encounter for screening mammogram for malignant neoplasm of breast (principal)
CPT/HCPCS: 77063; 77067

== ENCOUNTER → 2022-08-16 | Outpatient (CLI) | payer MEDICARE, SELFPAY ==
--- NOTE | 2022-08-16 13:05 | BD_ITS ---
STUDY: DUAL ENERGY X-RAY ABSORPTIOMETRY / DXA REASON FOR EXAM: Female, 72 years old. [id number] TECHNIQUE: Bone Mineral Density (BMD) measurements of lumbar spine and bilateral hips were obtained. COMPARISON: Comparison is made with prior study dated 08/09/2020. FINDINGS: Lumbar Spine (L1-L4): g/cm2 (0.857) / T-score (-1.1) / Z-score (1.1) Findings are suggestive of osteopenia with a low fracture risk. Left Femur Total: g/cm2 (0.672) / T-score (-2.2) / Z-score (-0.5) Left Femoral Neck: g/cm2 (0.623) / T-score (-2.0) / Z-score (0.0) Right Femur Total: g/cm2 (0.722) / T-score (-1.8) / Z-score (-0.1) Right Femoral Neck: g/cm2 (0.708) / T-score (-1.3) / Z-score (0.8) The T-Scores on the most recent prior examination were: Lumbar Spine (L1-L4): There has been worsening of bone density since the previous examination. Left Femur Total: which represents a worsening of 9.3%. Right Femur Total: which represents a worsening of 1.1%. BD/Dexa Bone Density Study IMPRESSION: The patient is considered osteopenic as outlined below according to [employer] Organization (WHO) criteria with a high fracture risk. There has been worsening of bone density since the previous examination. Reference Information: The T-score is the number of standard deviations above or below the standard which is normal for young adults at their peak bone mineral density. The World Health Organization (WHO) interprets the T-scores as follows: Above -1 Normal bone density Between -1 and -2.5 Osteopenia Equal to / or below -2.5 Osteoporosis As a practical clinical guideline, osteopenia may be graded as follows: Mild -1 through -1.5 Moderate -1.6 through -2.0 Severe -2.1 through -2.4 The Z-score is the number of standard deviations above or below age-matched controls. A Z-score of less than -1.5 would be considered abnormal. References: 1. NIH Osteoporosis and Related Bone Diseases www osteo.org 2. International Society for Clinical Densitometry www iscd.org 3. National Osteoporosis Foundation www nof.org Electronically Signed: Main Owen MD at 14:08 EST ,
== END | disposition home or self-care (01) ==
LOC: OPBD 12:57
PROVIDERS: PCP Internal Medicine; Visit Provider Internal Medicine
DX: Z78.0 Asymptomatic menopausal state (principal)
CPT/HCPCS: 77080

== ENCOUNTER → 2023-02-25 | Outpatient (CLI) | payer MEDICARE, SELFPAY ==
--- NOTE | 2023-02-25 12:46 | BI_ITS ---
MAMMOGRAPHY - BILATERAL SCREENING REASON FOR EXAM: Female, 72 years old. Routine annual screening examination. PERTINENT HISTORY: Non-contributory. TECHNIQUE: Digital bilateral breast juan j (3D mammographic acquisition) in the CC and MLO projections. 2-D mediolateral oblique (MLO) and craniocaudad (CC) views of both breasts were obtained. CAD: Full Field Digital Mammography with Computer Added Detection was performed. COMPARISON: Comparison is made with prior study dated February 19, 2022 and August 15, 2020. FINDINGS: Breast Composition: There are scattered areas of fibroglandular density. There are no dominant masses or suspicious calcifications. No other significant abnormalities are identified. There has been no significant change since the prior study. BI/SCRN MAMM (CAD)W/JUAN J BILAT IMPRESSION: Stable bilateral screening mammogram. Yearly follow-up mammogram recommended. (A) ASSESSMENT CATEGORY: BIRADS Category 1: Negative. A letter regarding these results will be sent to the patient by the facility within 30 days. Approximately 10% of breast cancers are not detected by mammography. A normal mammogram should not delay biopsy of a clinically suspicious abnormality. [id number] Electronically Signed: Main Owen MD at 14:22 EDT ,
== END | disposition home or self-care (01) ==
LOC: OPBI 12:43
PROVIDERS: PCP Internal Medicine; Referring Provider Nurse Practitioner Women's Health; Visit Provider Nurse Practitioner Women's Health
DX: Z12.31 Encounter for screening mammogram for malignant neoplasm of breast (principal)
CPT/HCPCS: 77063; 77067

== ENCOUNTER → 2023-06-03 | Outpatient (CLI) | payer MEDICARE, SELFPAY ==
--- NOTE | 2023-06-03 09:30 | CDU_ITS ---
Reason For Study: Bilateral Carotid Stenosis Rt. Velocities/BP Lt. Velocities/BP Prox CCA 75.1/14.6 cm/sec. Prox CCA 98.6/32.3 cm/sec. Mid CCA 85.0/13.5 cm/sec. Mid CCA 103.5/28.6 cm/sec. Dist CCA 85.0/23.4 cm/sec. Dist CCA 70.7/22.8 cm/sec. Prox ICA 110.1/33.4 cm/sec. Prox ICA 103.4/34.0 cm/sec. Mid ICA 101.6/33.6 cm/sec. Mid ICA 106.8/44.4 cm/sec. Dist ICA 156.5/51.1 cm/sec. Dist ICA 134.1/43.6 cm/sec. Rt. ICA/CCA = 1.8. Lt. ICA/CCA = 1.3. Prox ECA 69.8/12.8 cm/sec. Prox ECA 59.8/7.1 cm/sec. Rt. Vert. 60.8/20.1 cm/sec. Lt. Vert. 68.4/13.5 cm/sec. Right Extracranial There is homogeneous, smooth atherosclerotic plaque noted in the right common carotid artery. There is heterogeneous, irregular atherosclerotic plaque noted in the right internal carotid artery. The atherosclerotic plaque causes acoustic shadowing. The right internal carotid artery is very tortuous. There is heterogeneous, irregular atherosclerotic plaque noted in the right external carotid artery. Antegrade flow is noted in the right vertebral artery. Left Extracranial There is homogeneous, smooth atherosclerotic plaque noted in the left common carotid artery. There is heterogeneous, irregular atherosclerotic plaque noted in the left internal carotid artery. The atherosclerotic plaque causes acoustic shadowing. The left internal carotid artery is very tortuous. There is homogeneous, smooth atherosclerotic plaque noted in the left external carotid artery. Antegrade flow is noted in the left vertebral artery. Procedure Carotid Duplex [id number]. This is a Carotid Duplex examination using B-mode, color flow and specral Doppler. The exam was diagnostic. Exam performed in department. VL/Carotid Duplex Ultrasound Interpretation Summary Moderate (50-69%) stenosis right extracranial internal carotid. Moderate (50-69%) stenosis left extracranial internal carotid. Patent and antegrade vertebrals bilaterally. Ordering Physician: Alison Finch Referring Physician: Alison Finch Performed By: Nasir Lamar RVT
== END | disposition home or self-care (01) ==
LOC: CVS 09:29
PROVIDERS: PCP Internal Medicine; Referring Provider Internal Medicine; Visit Provider Internal Medicine
DX: I65.23 Occlusion and stenosis of bilateral carotid arteries (principal)
CPT/HCPCS: 93880

== ENCOUNTER 2023-07-02 13:00 | Outpatient (RCR) | payer MEDICARE, SELFPAY ==
--- NOTE | 2023-06-11 14:19 | HP.PTEVAL_ITS ---
Patient's Visit Information Visit Information Visit Information: LONNIE GIBBONS is a 72 year old F referred to Physical Therapy by Dr. Alison Finch DO with a diagnosis of LBP. Date of Evaluation: 06/11/23 Physical Therapist: Stephane Fontenot, PT, ATC Visit Plan Frequency: 2x /Week Duration: 2-4 Weeks Plan: SKTC/DKTC, core stab ex's, LE strengthening, nustep, and HEP Subjective Subjective: Pt reports she has had pain for greater than 10 months. Pt notes she should have done something before now, but has been exercising at home as an attempt to alleviate her pain. Pt reports she is limited with all outside lawn chores at this time secondary to pain and weakness. Pt has had no recent diagnostic tests at this time. Pt denies tingling or numbness in her LE's, but notes she experiences cramping on occasion. Pt reports she is sore when she wakes up in the morning. Pt reports it takes her a long time to fall asleep at night secondary to pain. My back feels extremely tired all the time. Pt reports sitting for a prolonged period of time, for 1-1 1/2 hours, will increase her pain. 5/10 pain while at rest, 10/10 pain at worst. Pain LBP: Pain Intensity (Out of 10): 5 Pain Intensity Range: 10 Objective Objective: Neuro: B LE sensation is WNL to light touch. B patellar reflex= 2/3 MMT: B LE's are grossly 4/5 with exception to knee ext= 5/5 throughout ROM: Pt is severely limited with extension. All other motions are WNL Repeated movements: Pt experiences increased pain with ext. Minor relief with flexion. Observation: Pt has scoliotic curvature with L side concavity. Leg length is equal Balance/Special Test Scores Oswestry Low Back Score: 16 Goals Goal 1:: Decrease LBP x 50% to aid with sleep Goal Time Frame: 2-4 Weeks Goal 2:: Increase B LE strength x 1 grade to aid with IADL's Goal Time Frame: 2-4 Weeks Goal 3:: Pt will be I with a HEP Goal Time Frame: 2-4 Weeks Rehabilitation Potential Physical Therapy Diagnosis: Pt has LBP, weakness, and limited L/S ROM secondary to degenerative changes in the L/S Rehabilitation Potential: Good Anticipated Interventions Patient/Client Instruction: Educate patient on: Condition and Plan of Care For the Purpose of:: To improve self management Therapeutic Exercise to Include: Strength training, Endurance training, Body mechanics, Postural training, Flexibilty training and Dynamic Lumbar Stabilization For the Purpose of:: To decrease pain and To improve muscle performance and motor function Text: Thank you for the opportunity to evaluate your patient. For Medicare and Medicare HMO plans, please review the plan of care and approve it. It will need to be FAXED BACK to us at [phone] for Medicare purposes. For Medicare only, by signing this I certify the plan of care. Please let me know if there are questions or concerns regarding this plan of care. Physician Signature: Date:____
--- NOTE | 2023-07-02 13:28 | HP.PTDCSUM ---
Discharge Summary D/C summary: It has been my pleasure to treat LONNIE GIBBONS referred by Dr. Alison Finch DO, with the diagnosis of LBP for a total of 7 visit(s). Discharge Date: Please see the following information for a summary of their discharge status. Subjective Subjective: Pt. states that she feels pretty good except for being cold. The original back pain she was experiencing is completely gone. Pain LBP: Pain Intensity (Out of 10): 0 Overall Improvement % Improvement: 100 Objective Objective/Function: Pts. LBP is noted at a 0/10 which meets her goal of a reduction of pain at 50% to aid with sleep. Pt. gross B LE MMT is a 5/5 which meets her goal of improving this by 1 grade. Pt. is I with her HEP which meets her goal. Pts. PDI Back score is now a 0; originally this score was a 16. Goals Goal 1:: Decrease LBP x 50% to aid with sleep Goal 2:: Increase B LE strength x 1 grade to aid with IADL's Goal 3:: Pt will be I with a HEP Goal 4:: Pt. will demonstrate a MCID of 4 points on their FGA score in order to identify an increase in their postural stability and to aid in their ability to perform multiple motor tasks while walking. Goal 5:: Pt. will demonstrate a max CATSIB score of 120 seconds in order to aid in their ability to obtain postural control under various sensory conditions. Plan Plan: D/C at this time with HEP. D/C Information d/c sentence: If there are questions or concerns regarding this patient's physical therapy, please feel free to call me at [phone]. Thank you for the referral of this patient. Sincerely, Stephane Fontenot, PT, ATC Balance/Gait/Functional tests Balance/Special Test Scores Functional Gait Assessment Score: 20 % Disability: 33.3400 CATSIB Score (Max score 120 seconds): 85 Oswestry Low Back Score: 0 Improvement % Improvement: 100
== END 2023-07-02 19:00 | disposition home or self-care (01) ==
LOC: PT 13:00
PROVIDERS: PCP Internal Medicine; Referring Provider Internal Medicine; Visit Provider Internal Medicine
DX: M51.36 Other intervertebral disc degeneration, lumbar region (principal); M54.9 Dorsalgia, unspecified
CPT/HCPCS: 97110; 97116; 97161; 97164; 97530

== ENCOUNTER → 2023-11-11 | Outpatient (CLI) | payer MEDICARE, SELFPAY ==
[2023-11-11 10:07] LABS: Absolute Lymphocyte Count 1.12 X10^3/uL (0.83-4.51); Absolute Neutrophil Count 3.7 X10^3/uL (2.0-7.7); Basophil# 0.07 X10^3/uL; Basophil% 1.2 % (0-1); Eosinophil# 0.17 X10^3/uL; Hemoglobin 12.8 g/dL (12.0-15.0); Lymphocyte # 1.12 X10^3/ul (0.83-4.51); Lymphocyte % 19.8 % (19-41); Mean Corpuscular Hgb 31.7 pg (27.0-32.0); Mean Platelet Vol. 10.5 fl (6.2-12.0); Monocyte# 0.58 X10^3/uL; Monocyte% 10.3 % (0-10); NRBC Flagged by Analyzer 0 % (0-5); Neutrophil % 65.5 % (47-70); Platelet Count 253 K/mm3 (150-450); RBC Distribution Width CV 12.5 % (11.6-14.6); RBC Distribution Width SD 45.5 fl (35.1-43.9); Red Blood Count 4.04 M/mm3 (4.2-5.4); White Blood Count 5.7 K/mm3 (4.4-11.0)
[2023-11-11 10:26] LABS: Vitamin D,25 Hydroxy 52.3 ng/mL
[2023-11-11 10:45] LABS: ALB/GLOB Ratio 0.8 RATIO (0.9-2.4); AST(SGOT) 27 U/L (15-37); Alanine Aminotransfer ALT/SGPT 26 U/L (13-56); Albumin, Serum 3.4 g/dL (3.2-5.0); Alkaline Phosphatase 78 U/L (45-117); Anion Gap 4 (5-15); BUN 12 mg/dL (7-18); BUN/Creat Ratio 17.9 RATIO (10-20); Calcium,Total 9.3 mg/dL (8.5-10.1); Chloride 107 mmol/L (98-107); Cholesterol 157 mg/dL (200); Creatinine, Serum 0.67 mg/dL (0.55-1.02); EST Glomerular Filtration Rate 91 mL/min (>60); Est Glom Filt Rate - Afr Amer 110 mL/min (>60); Globulin 4.4 g/dL (2.2-4.2); Glucose 88 mg/dL (74-106); High Density Lipoprotein 93 mg/dL; Potassium 4.2 mmol/L (3.5-5.1); Protein, Total 7.8 g/dL (6.4-8.2); Sodium Level 138 mmol/L (136-145); Thyroid Stim Hormone (TSH) 1.52 uIU/mL (0.358-3.74); Triglycerides 78 mg/dL; Very Low Density Lipoprotein 16 mg/dL (5-40)
== END | disposition home or self-care (01) ==
PROVIDERS: PCP Internal Medicine; Referring Provider Internal Medicine; Visit Provider Internal Medicine
DX: E78.00 Pure hypercholesterolemia, unspecified (principal); E55.9 Vitamin D deficiency, unspecified
CPT/HCPCS: 36415; 80053; 80061; 82306; 84443; 85025

== ENCOUNTER → 2024-03-09 | Outpatient (CLI) | payer MEDICARE, SELFPAY ==
--- NOTE | 2024-03-09 13:00 | BI_ITS ---
MAMMOGRAPHY - BILATERAL SCREENING REASON FOR EXAM: Female, 73 years old. Routine annual screening examination. PERTINENT HISTORY: Non-contributory. History of prior left needle breast biopsy. TECHNIQUE: Digital bilateral breast juan j (3D mammographic acquisition) in the CC and MLO projections. 2-D mediolateral oblique (MLO) and craniocaudad (CC) views of both breasts were obtained. CAD: Full Field Digital Mammography with Computer Added Detection was performed. COMPARISON: Comparison is made with prior study dated February 25, 2023 and February 19, 2022. FINDINGS: Breast Composition: There are scattered areas of fibroglandular density. There are no dominant masses or suspicious calcifications. No other significant abnormalities are identified. There has been no significant change since the prior study. BI/SCRN MAMM (CAD)W/JUAN J BILAT IMPRESSION: Stable bilateral screening mammogram. Yearly follow-up mammogram recommended. (A) ASSESSMENT CATEGORY: BIRADS Category 1: Negative. A letter regarding these results will be sent to the patient by the facility within 30 days. Approximately 10% of breast cancers are not detected by mammography. A normal mammogram should not delay biopsy of a clinically suspicious abnormality. [id number] Electronically Signed: Main Owen MD at 13:32 EDT ,
== END | disposition home or self-care (01) ==
LOC: OPBI 13:00
PROVIDERS: PCP Internal Medicine; Referring Provider Nurse Practitioner Women's Health; Visit Provider Nurse Practitioner Women's Health
DX: Z12.31 Encounter for screening mammogram for malignant neoplasm of breast (principal)
CPT/HCPCS: 77063; 77067

== ENCOUNTER → 2024-03-16 | Outpatient (CLI) | payer MEDICARE, SELFPAY ==
--- NOTE | 2024-03-16 09:30 | MRI_ITS ---
STUDY: MRI LUMBAR SPINE WITHOUT CONTRAST REASON FOR EXAM: Female, 73 years old. Pain pain/numbness bilat hips; prev xrays TECHNIQUE: Standardized fat and water weighted pulse sequences were obtained in the sagittal and axial planes. COMPARISON: X-ray the lumbar spine dated February 27, 2024 FINDINGS: Normal lumbar lordosis. There is an S-shaped thorocolumbar scoliosis with a levoscoliosis of the thoracic spine and dextroscoliosis of the lumbar spine. Normal conus medullaris that terminates at the L1 level. No marrow edema or fracture or compression deformity is present. T12-L1: Normal endplates. Normal disc height, hydration and morphology. Normal bilateral facet joints. Normal central canal and bilateral lateral recesses. Normal bilateral intervertebral neural foramina. L1-2: Normal endplates. Diffuse disc desiccation with mild disc space narrowing and annular bulging. Mild facet joint hypertrophy. Normal central canal and bilateral lateral recesses. Normal bilateral intervertebral neural foramina. L2-3: Diffuse disc desiccation with disc bulging. Moderate left facet joint hypertrophy. Moderate left foraminal stenosis with nerve root compression. Normal right neural foramen. Normal central canal and bilateral lateral recesses. L3-4: Severe disc space narrowing with a diffuse disc osteophyte complex. Mild Modic endplate degenerative changes moderate facet joint hypertrophy. Mild bilateral foraminal stenosis. Normal central canal and bilateral lateral recesses. Moderate left foraminal stenosis with nerve root compression. Normal right neural foramen. L4-5: Severe disc space narrowing with a diffuse disc osteophyte complex. Mild Modic endplate degenerative changes moderate facet joint hypertrophy. Mild bilateral foraminal stenosis. Normal central canal and bilateral lateral recesses. Mild to moderate Modic endplate degenerative changes. L5-S1: Diffuse disc desiccation with mild posterior disc space narrowing and slight annular bulging. Moderate facet joint hypertrophy and degeneration. Moderate right foraminal stenosis with nerve root compression. Normal left neural foramen. Normal central canal and bilateral lateral recesses. Normal visualized sacral ala. There is moderate paraspinal muscular atrophy. MRI/Spine Lumbar (Routine) IMPRESSION: 1. Multilevel degenerative changes, as described above. Electronically Signed: Tuhsar Montalvo MD at 13:13 EDT ,
== END | disposition home or self-care (01) ==
PROVIDERS: PCP Internal Medicine; Referring Provider Orthopaedic Surgery Orthopaedic Surgery of the Spine; Visit Provider Orthopaedic Surgery Orthopaedic Surgery of the Spine
DX: M41.9 Scoliosis, unspecified (principal); M54.16 Radiculopathy, lumbar region
CPT/HCPCS: 72148

== ENCOUNTER → 2024-07-06 | Outpatient (CLI) | payer MEDICARE, SELFPAY ==
[2024-07-06 12:23] LABS: Absolute Lymphocyte Count 1.39 X10^3/uL (0.83-4.51); Absolute Neutrophil Count 4.3 X10^3/uL (2.0-7.7); Basophil# 0.07 X10^3/uL; Basophil% 1.1 % (0-1); Eosinophil# 0.13 X10^3/uL; Hematocrit 41.4 % (37-47); Hemoglobin 13.7 g/dL (12.0-15.0); Lymphocyte # 1.39 X10^3/ul (0.83-4.51); Lymphocyte % 21.3 % (19-41); Mean Corp Hgb Conc 33.1 g/dL (32-36); Mean Corpuscular Hgb 32.9 pg (27.0-32.0); Mean Corpuscular Volume 99.3 fL (81-99); Mean Platelet Vol. 10.7 fl (6.2-12.0); Monocyte# 0.67 X10^3/uL; Monocyte% 10.3 % (0-10); NRBC Flagged by Analyzer 0 % (0-5); Neutrophil # 4.25 X10^3/uL (2.7-7.7); Neutrophil % 65.1 % (47-70); Platelet Count 286 K/mm3 (150-450); RBC Distribution Width CV 11.9 % (11.6-14.6); RBC Distribution Width SD 43.8 fl (35.1-43.9); Red Blood Count 4.17 M/mm3 (4.2-5.4); White Blood Count 6.5 K/mm3 (4.4-11.0)
[2024-07-06 12:40] LABS: ALB/GLOB Ratio 0.7 RATIO (0.9-2.4); AST(SGOT) 28 U/L (15-37); Alanine Aminotransfer ALT/SGPT 28 U/L (13-56); Albumin, Serum 3.6 g/dL (3.2-5.0); Alkaline Phosphatase 92 U/L (45-117); Anion Gap 6 (5-15); BUN 16 mg/dL (7-18); BUN/Creat Ratio 23.7 RATIO (10-20); Calcium,Total 10.1 mg/dL (8.5-10.1); Chloride 105 mmol/L (98-107); Creatinine, Serum 0.68 mg/dL (0.55-1.02); EST Glomerular Filtration Rate 90 mL/min (>60); Est Glom Filt Rate - Afr Amer 109 mL/min (>60); Globulin 4.9 g/dL (2.2-4.2); Glucose 93 mg/dL (74-106); Potassium 4.6 mmol/L (3.5-5.1); Protein, Total 8.5 g/dL (6.4-8.2); Sodium Level 139 mmol/L (136-145)
== END | disposition home or self-care (01) ==
PROVIDERS: PCP Internal Medicine; Referring Provider Internal Medicine; Visit Provider Internal Medicine
DX: K21.9 Gastro-esophageal reflux disease without esophagitis (principal); M85.80 Other specified disorders of bone density and structure, unspecified site
CPT/HCPCS: 36415; 80053; 85025

== ENCOUNTER → 2024-07-20 | Outpatient (CLI) | payer MEDICARE, SELFPAY ==
--- NOTE | 2024-07-20 12:45 | CDU_ITS ---
Reason For Study: Carotid Stenosis Rt. Velocities/BP Lt. Velocities/BP Prox CCA 111.1/23.3 cm/sec. Prox CCA 114.3/28.5 cm/sec. Mid CCA 111.1/23.3 cm/sec. Mid CCA 110.7/32.1 cm/sec. Dist CCA 115.5/29.9 cm/sec. Dist CCA 88.8/28.5 cm/sec. Prox ICA 133.0/36.4 cm/sec. Prox ICA 116.2/32.1 cm/sec. Mid ICA 58.2/18.5 cm/sec. Mid ICA 85.4/29.3 cm/sec. Dist ICA 141.0/47.1 cm/sec. Dist ICA 96.5/28.0 cm/sec. Rt. ICA/CCA = 1.3. Lt. ICA/CCA = 1.0. Prox ECA 83.0/3.1 cm/sec. Prox ECA 73.9/10.3 cm/sec. Rt. Vert. 60.0/18.2 cm/sec. Lt. Vert. 89.9/17.8 cm/sec. Right Extracranial There is homogeneous, smooth atherosclerotic plaque noted in the right common carotid artery. There is heterogeneous, irregular atherosclerotic plaque noted in the right internal carotid artery. The right internal carotid artery is very tortuous. There is heterogeneous, irregular atherosclerotic plaque noted in the right external carotid artery. Antegrade flow is noted in the right vertebral artery. Left Extracranial There is homogeneous, smooth atherosclerotic plaque noted in the left common carotid artery. There is heterogeneous, irregular atherosclerotic plaque noted in the left internal carotid artery. The left internal carotid artery is very tortuous. There is heterogeneous, irregular atherosclerotic plaque noted in the left external carotid artery. Antegrade flow is noted in the left vertebral artery. Procedure Carotid Duplex [id number]. This is a Carotid Duplex examination using B-mode, color flow and specral Doppler. The exam was diagnostic. This is a venous duplex using B-mode, color flow and spectral Doppler. VL/Carotid Duplex Ultrasound Interpretation Summary Mild (<50%) stenosis right extracranial internal carotid. Mild (<50%) stenosis left extracranial internal carotid. Flow within the vertebral arteries is antegrade bilaterally. Ordering Physician: Heather Krishnamurthy Referring Physician: Heather Krishnamurthy Performed By: Nasir Lamar RVT
== END | disposition home or self-care (01) ==
PROVIDERS: PCP Internal Medicine; Referring Provider Internal Medicine; Visit Provider Internal Medicine
DX: I65.23 Occlusion and stenosis of bilateral carotid arteries (principal)
CPT/HCPCS: 93880

== ENCOUNTER → 2024-08-18 | Outpatient (CLI) | payer MEDICARE, SELFPAY ==
--- NOTE | 2024-08-18 12:53 | BD_ITS ---
STUDY: DUAL ENERGY X-RAY ABSORPTIOMETRY / DXA REASON FOR EXAM: Female, 74 years old. Post - Menopausal TECHNIQUE: Bone Mineral Density (BMD) measurements of lumbar spine and bilateral hips were obtained. COMPARISON: Comparison is made with prior study dated August 16, 2022. FINDINGS: Lumbar Spine (L1-L4): g/cm2 (0.883) / T-score (-0.9) / Z-score (1.4) Findings are suggestive of normal bone density with a low fracture risk. Left Femur Total: g/cm2 (0.635) / T-score (-2.5) / Z-score (-0.7) Left Femoral Neck: g/cm2 (0.591) / T-score (-2.3) / Z-score (-0.2) Right Femur Total: g/cm2 (0.687) / T-score (-2.1) / Z-score (-0.2) Right Femoral Neck: g/cm2 (0.693) / T-score (-1.4) / Z-score (0.7) The T-Scores on the most recent prior examination were: Lumbar Spine (L1-L4): There has been improvement of bone density since the previous examination. Left Femur Total: which represents a worsening of 5.5%. Right Femur Total: which represents a worsening of 4.8%. BD/Dexa Bone Density Study IMPRESSION: The patient is considered osteopenic as outlined below according to [employer] Organization (WHO) criteria with a high fracture risk. There has been worsening of bone density since the previous examination. Reference Information: The T-score is the number of standard deviations above or below the standard which is normal for young adults at their peak bone mineral density. The World Health Organization (WHO) interprets the T-scores as follows: Above -1 Normal bone density Between -1 and -2.5 Osteopenia Equal to / or below -2.5 Osteoporosis As a practical clinical guideline, osteopenia may be graded as follows: Mild -1 through -1.5 Moderate -1.6 through -2.0 Severe -2.1 through -2.4 The Z-score is the number of standard deviations above or below age-matched controls. A Z-score of less than -1.5 would be considered abnormal. References: 1. NIH Osteoporosis and Related Bone Diseases www osteo.org 2. International Society for Clinical Densitometry www iscd.org 3. National Osteoporosis Foundation www nof.org Electronically Signed: Main Owen MD at 14:20 EST ,
== END | disposition home or self-care (01) ==
LOC: OPBD 12:47
PROVIDERS: PCP Internal Medicine; Referring Provider Internal Medicine; Visit Provider Internal Medicine
DX: Z78.0 Asymptomatic menopausal state (principal)
CPT/HCPCS: 77080

== ENCOUNTER → 2024-09-24 | Outpatient (CLI) | payer MEDICARE, SELFPAY ==
[2024-09-24 12:39] LABS: Vitamin B12 > 2000 pg/mL (211-911)
[2024-09-30 20:07] LABS: Vitamin B1, Thiamine 214.6 nmol/L (66.5-200.0)
== END | disposition home or self-care (01) ==
LOC: MTLAB 10:34
PROVIDERS: PCP Internal Medicine; Referring Provider Psychiatry & Neurology Neurology; Visit Provider Psychiatry & Neurology Neurology
DX: R43.0 Anosmia (principal); F41.9 Anxiety disorder, unspecified
CPT/HCPCS: 36415; 82607; 82746; 84425; 84443

== ENCOUNTER → 2024-10-26 | Outpatient (CLI) | payer MEDICARE, SELFPAY ==
--- NOTE | 2024-10-26 13:37 | MRI_ITS ---
PROCEDURE: BRAIN W/WO CONTRAST REASON FOR EXAM: Anosmia. TECHNIQUE: Multiplanar, multisequence MRI of the brain with and without intravenous gadolinium-based contrast. CONTRAST: 11 mL Clariscan. COMPARISON: None. FINDINGS: There is mild atrophy. No midline shift, mass effect, or extra-axial fluid collections are identified. There are numerous foci of hyperintense T2/FLAIR signal in the periventricular and deep white matter relating to chronic small vessel ischemic disease. There are chronic ischemic changes of the ken. No diffusion restriction is identified on diffusion-weighted imaging to suggest acute/subacute ischemic changes. No acute intracranial hemorrhage or acute territorial infarction is seen. No abnormal enhancement or enhancing mass is present. Olfactory region is unremarkable. Corpus callosum, optic chiasm, suprasellar cistern, and cerebellar tonsils are within normal range. Major vascular flow voids are present. Bilateral orbits are intact. Nasal septum is deviated to the right. There are numerous mucous retention cysts and/or polyps in the bilateral maxillary sinuses. MRI/Brain W/WO Contrast IMPRESSION: 1. No acute intracranial process, abnormal enhancement, or enhancing mass. 2. Chronic small vessel ischemic disease. 3. Atrophy. Reading Location: [facility]
== END | disposition home or self-care (01) ==
LOC: MRI 13:09
PROVIDERS: PCP Internal Medicine; Referring Provider Psychiatry & Neurology Neurology; Visit Provider Psychiatry & Neurology Neurology
DX: R43.0 Anosmia (principal)
CPT/HCPCS: 70553; A9575

== ENCOUNTER → 2024-11-30 | Outpatient (CLI) | payer MEDICARE, SELFPAY ==
--- NOTE | 2024-11-30 19:11 | MRI_ITS ---
PROCEDURE: MRI lumbar spine without IV contrast REASON FOR EXAM: Pain TECHNIQUE: Multisequence multiplanar MR images of the lumbar spine were obtained without the administration of intravenous contrast. COMPARISON: 03/16/2024 FINDINGS: Vertebral body heights are within normal limits. Negative for fracture or marrow replacement. Degenerative endplate changes at L2-3 with associated facet edema on the left. Moderate dextroscoliosis. Conus medullaris is within normal limits and terminates at L1. Moderate paraspinal muscle atrophy. L1-2: Small posterior disc bulge. Mild bilateral facet arthrosis. No significant spinal stenosis. Moderate/severe left foraminal narrowing. Mild right foraminal narrowing. L2-3: Posterior disc bulge. Moderate bilateral facet arthrosis. No significant spinal stenosis. Severe left foraminal narrowing. L3-4: Small posterior disc osteophyte complex. Moderate/severe bilateral facet arthrosis. No significant spinal stenosis. Moderate/severe left and mild right foraminal narrowing. L4-5: Posterior disc osteophyte complex. Moderate bilateral facet arthrosis. No significant spinal stenosis. Mild left and mild/moderate right foraminal narrowing. L5-S1: Small posterior disc bulge eccentric to the right. Moderate bilateral facet arthrosis. No significant spinal stenosis. Moderate right foraminal narrowing. MRI/Spine Lumbar (Routine) IMPRESSION: 1. No significant spinal stenosis. 2. Acquired multilevel foraminal narrowing, greatest on the left at from L1 thr ough L4. 3. Moderate dextroscoliosis. Reading Location: [facility]
== END | disposition home or self-care (01) ==
LOC: MRI 11:52
PROVIDERS: PCP Internal Medicine; Referring Provider Orthopaedic Surgery Orthopaedic Surgery of the Spine; Visit Provider Orthopaedic Surgery Orthopaedic Surgery of the Spine
DX: M54.16 Radiculopathy, lumbar region (principal); M41.9 Scoliosis, unspecified
CPT/HCPCS: 72148

== ENCOUNTER → 2024-12-22 | Outpatient (CLI) | payer MEDICARE, SELFPAY ==
[2024-12-22 10:38] LABS: Absolute Lymphocyte Count 1.14 X10^3/uL (0.83-4.51); Absolute Neutrophil Count 3.7 X10^3/uL (2.0-7.7); Basophil# 0.05 X10^3/uL; Basophil% 0.9 % (0-1); Eosinophil# 0.09 X10^3/uL; Eosinophils% 1.6 % (0-5); Hematocrit 39.5 % (37-47); Lymphocyte # 1.14 X10^3/ul (0.83-4.51); Lymphocyte % 20.9 % (19-41); Mean Corp Hgb Conc 32.9 g/dL (32-36); Mean Corpuscular Hgb 32.3 pg (27.0-32.0); Mean Platelet Vol. 10.2 fl (6.2-12.0); Monocyte# 0.49 X10^3/uL; NRBC Flagged by Analyzer 0 % (0-5); Neutrophil # 3.68 X10^3/uL (2.7-7.7); Neutrophil % 67.4 % (47-70); Platelet Count 255 K/mm3 (150-450); RBC Distribution Width CV 12.8 % (11.6-14.6); RBC Distribution Width SD 45.7 fl (35.1-43.9); Red Blood Count 4.03 M/mm3 (4.2-5.4); White Blood Count 5.5 K/mm3 (4.4-11.0)
[2024-12-22 11:15] LABS: ALB/GLOB Ratio 1.2 RATIO (0.9-2.4); AST(SGOT) 26 U/L (<=31); Alanine Aminotransfer ALT/SGPT 16 U/L (<=34); Alkaline Phosphatase 72 U/L (35-104); Anion Gap 11 (5-15); BUN 14 mg/dL (4-19); BUN/Creat Ratio 19.8 RATIO (10-20); Calcium,Total 9.5 mg/dL (7.6-11.0); Carbon Dioxide 23.6 mmol/L (21.0-32.0); Chloride 106 mmol/L (98-108); Creatinine, Serum 0.69 mg/dL (0.70-1.20); EST Glomerular Filtration Rate 90 (>60); Globulin 3.4 g/dL (2.2-4.2); Glucose 88 mg/dL (70-99); Potassium 4.2 mmol/L (3.3-5.1); Protein, Total 7.4 g/dL (5.9-8.4); Sodium Level 140 mmol/L (133-145)
== END | disposition home or self-care (01) ==
LOC: MTLAB 08:10
PROVIDERS: PCP Internal Medicine; Referring Provider Internal Medicine; Visit Provider Internal Medicine
DX: F41.9 Anxiety disorder, unspecified (principal); I77.9 Disorder of arteries and arterioles, unspecified
CPT/HCPCS: 36415; 80053; 84439; 84443; 85025

== ENCOUNTER 2025-02-07 10:43 | Emergency (ER) | payer MEDICARE, SELFPAY ==
[2025-02-07 10:44] VITALS: BP 178/98; PULSE 65; RESP 19; TEMP 36.2; O2SAT 99; BMI 20.6
--- NOTE | 2025-02-07 11:23 | EKG12_ITS ---
Test Reason : O Blood Pressure : */* mmHG Vent. Rate : 64 BPM Atrial Rate : 64 BPM P-R Int : 164 ms QRS Dur : 134 ms QT Int : 426 ms P-R-T Axes : 57 -23 19 degrees QTcB Int : 439 ms Sinus rhythm with occasional Premature ventricular complexes Possible Left atrial enlargement Right bundle branch block Abnormal ECG Confirmed by Perico Gauthier ([id number]), design editor ALHAJI ANDRE ([id number]) on 02/15/2025 1:05:03 PM Referred By: Confirmed By: Perico Gauthier
--- NOTE | 2025-02-07 11:27 | EX.ED.DYSGE1 ---
HPI <SEAN Barone - Last Filed: 02/07/25 13:45> History of Present Illness Chief Complaint: General Illness Narrative Narrative: Patient presenting today due to concerns for elevated blood pressure, facial flushing, a sensation of pressure across her forehead and behind her eyes, and intermittent feelings of her heart racing that started Saturday evening. She reports that she had a steroid injection to her left hip Rui morning due to chronic hip pain. She has had several steroid injections in the past with no adverse effects. 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 She denies chest pain, shortness of breath, abdominal pain, nausea, and vomiting. She denies any history of HTN. PFS <SEAN Barone - Last Filed: 02/07/25 13:45> [facility]LY [facility] Medical History Osteopenia with high risk of fracture Health care maintenance Gammopathy Bilateral extracranial carotid artery stenosis Trigger finger, right Osteopenia Arthritis Hemorrhoids Acid reflux Right bundle branch block Anxiety Carotid artery disease Home Medications ?Medication ?Instructions ?Recorded ?Last Taken ?Type ascorbic acid (vitamin C) 500 mg mg PO 06/10/18 Unknown History capsule biotin 1 mg capsule 1 mg PO DAILY 06/10/18 Unknown History cholecalciferol (vitamin D3) 50 2,000 unit PO DAILY 06/10/18 Unknown History mcg (2,000 unit) capsule cinnamon bark 500 mg capsule mg PO 06/10/18 Unknown History (Cinnamon) clorazepate dipotassium 3.75 mg 3.75 mg PO QHS PRN 06/10/18 Unknown History tablet garlic 1,000 mg capsule 1,000 mg PO QPC 06/10/18 Unknown History omega-3 fatty acids 1,000 mg 1,000 mg PO DAILY 06/10/18 Unknown History capsule (Fish Oil Concentrate) vitamin B complex 1 cap PO DAILY 06/10/18 Unknown History acetaminophen 650 mg 650 mg PO Q8H 02/14/21 Unknown History tablet,extended release (Tylenol Arthritis Pain) aspirin 81 mg tablet,delayed 81 mg PO DAILY 02/14/21 Unknown History release (Adult Aspirin Regimen) ginkgo biloba 40 mg tablet 40 mg PO DAILY 02/27/24 Unknown History loperamide 2 mg capsule (Imodium 2 mg PO Q6H 02/27/24 Unknown History A-D) magnesium 250 mg tablet 250 mg PO DAILY 02/27/24 Unknown History turmeric 400 mg capsule mg PO 02/27/24 Unknown History calcium carbonate (Calcium 500) 600 mg PO BID 07/06/24 Unknown History flurbiprofen 100 mg tablet 100 mg PO TID PRN pain #90 tabs 09/24/24 Unknown Rx alendronate 35 mg tablet 35 mg PO 2XW #30 tabs 01/04/25 Unknown Rx atorvastatin 10 mg tablet (Lipitor) 10 mg PO DAILY #90 tabs 01/04/25 Unknown Rx oxycodone-acetaminophen 5 mg-325 tab PO PRN 01/04/25 Unknown History mg tablet Allergy/AdvReac Type Severity Reaction Status Date / Time ciprofloxacin (From Cipro) Allergy Mild abdominal Verified 02/07/25 10:44 cramping codeine Allergy Mild rash Verified 02/07/25 10:44 Androgenic Anabolic Steroid AdvReac Mild glaucoma Verified 02/07/25 10:44 Family History Mother Cancer Brother Prostate cancer Surgical History Hx of foot surgery Hx of cataract surgery Glaucoma, right eye Status post bilateral hernia repair Social History Smoking Status: Never smoker alcohol intake: never substance use type: does not use caffeine: Yes what type of physical activity do you participate in: walking frequency: 5-6 times per week seatbelt use: always do you feel safe at home: Yes additional social history: -Damon Patient and are both retired ROS <SEAN Barone - Last Filed: 02/07/25 13:45> ROS ED Constitutional Constitutional ED: Denies chills or fever(s) Cardiovascular Cardiovascular: Reports racing heartbeat; Denies chest pain Respiratory/Chest Respiratory/Chest: Denies dyspnea Gastrointestinal Gastrointestinal: Denies abdominal pain, nausea or vomiting Integumentary Denies rash Neurologic Neurologic: Denies weakness EXAM <SEAN Barone - Last Filed: 02/07/25 13:45> Physical Exam Const Vital Signs: 02/07/25 10:44 02/07/25 11:36 02/07/25 11:39 Temperature 97.1 F L Temperature Source Temporal Pulse Rate 65 68 Respiratory Rate 19 H 13 Respiratory Effort Normal Non-Labored Respiratory Pattern Normal Blood Pressure 178/98 H 179/72 H Blood Pressure Mean 124 107 Pulse Ox 99 97 Oxygen Delivery Method Room Air Room Air 02/07/25 12:12 02/07/25 12:52 Temperature 98 F Temperature Source Pulse Rate 60 59 L Respiratory Rate 15 20 H Respiratory Effort Respiratory Pattern Blood Pressure 141/68 H 141/68 H Blood Pressure Mean 92 92 Pulse Ox 99 98 Oxygen Delivery Method Room Air Positive well nourished, well developed and no apparent distress General Appearance ED: well developed HEENT Reports normocephalic and head/scalp atraumatic Mouth ED: Yes moist mucous membranes normal Eyes EOMs intact bilaterally Eyes Narrative: Right pupil somewhat larger than left but this is baseline according to patient, otherwise they are reactive and round to light Neck full ROM and supple Chest Wall inspection of chest normal Resp normal respiratory effort and clear to auscultation bilaterally Cardio regular rate and regular rhythm GI soft to palpation, non-tender, non-distended and no masses Back/Spine normal ROM and normal to inspection Extremity normal to inspection and full ROM Neuro oriented x3, CN's II-XII intact bilaterally, moves all extremities, no focal motor deficits and no sensory deficits noted Sensorium / Orientation: awake and alert Psych mental status grossly normal and thought process normal Skin no rashes or lesions noted and no wounds <Dr. Maura Jimenez DO - Last Filed: 02/10/25 16:15> Physical Exam Const Vital Signs: 02/07/25 10:44 02/07/25 11:36 02/07/25 11:39 Temperature 97.1 F L Temperature Source Temporal Pulse Rate 65 68 Respiratory Rate 19 H 13 Respiratory Effort Normal Non-Labored Respiratory Pattern Normal Blood Pressure 178/98 H 179/72 H Blood Pressure Mean 124 107 Pulse Ox 99 97 Oxygen Delivery Method Room Air Room Air 02/07/25 12:12 02/07/25 12:52 Temperature 98 F Temperature Source Pulse Rate 60 59 L Respiratory Rate 15 20 H Respiratory Effort Respiratory Pattern Blood Pressure 141/68 H 141/68 H Blood Pressure Mean 92 92 Pulse Ox 99 98 Oxygen Delivery Method Room Air MDM <SEAN Barone - Last Filed: 02/07/25 13:45> MDM MDM Narrative Medical decision making narrative: Patient presenting today with multiple complaints that started Riu evening. She has had intermittent feelings of her face flushing, elevated blood pressure, her heart racing, and has had a sensation of pressure behind her eyes and to her forehead. She denies any history of arrhythmia or hypertension. She otherwise is nontoxic-appearing. She does have a history of glaucoma, her ocular pressure was assessed and is 17 on the right and 18 on the left. She reports that her pressures normally 12 and 15 however, she is due for her eyedrops. Her blood pressure here did improve to 141/68, it was originally 178/98. CBC and BMP are unremarkable. She did just have her TSH checked a few weeks ago and it was WNL. I recommended that she continue to check her blood pressure daily, she does have an upcoming appointment with her PCP, they can discuss possible antihypertensives if needed. Recommended she follow-up with her senior gl accountant as well. On reexamination she is doing well, she feels well and would like to go home. She will be discharged home in stable condition. Lab Data Attestation: I reviewed the patient's lab results. Labs: Laboratory Results - last 24 hr 02/07/25 11:40 WBC 10.6 RBC 4.24 Hgb 13.8 Hct 41.7 MCV 98.3 MCH 32.5 H MCHC 33.1 RDW Std Deviation 46.3 H RDW Coeff of Elian 13.0 Plt Count 292 MPV 10.3 Immature Gran % (Auto) 0.400 Neut % (Auto) 76.9 H Lymph % (Auto) 14.7 L Fountain % (Auto) 7.7 Eos % (Auto) 0.1 Baso % (Auto) 0.2 Absolute Neuts (auto) 8.2 H Absolute Lymphs (auto) 1.56 Nucleated RBC % 0 Sodium 138 Potassium 4.3 Chloride 103 Carbon Dioxide 23.5 Anion Gap 11 BUN 19 Creatinine 0.73 Estim Creat Clear Calc 54.79 Est GFR (MDRD) Non-Af 86 BUN/Creatinine Ratio 26.1 H Glucose 140 H Calcium 9.8 EKG Initial EKG: Comments: 64 bpm, sinus rhythm with occasional PVCs, no ST elevation, interpreted by attending ED physician <Dr. Maura Jimenez, DO - Last Filed: 02/10/25 16:15> [facility] Narrative Medical decision making narrative: Patient presenting today with multiple complaints that started Saturday evening. She has had intermittent feelings of her face flushing, elevated blood pressure, her heart racing, and has had a sensation of pressure behind her eyes and to her forehead. She denies any history of arrhythmia or hypertension. She otherwise is nontoxic-appearing. She does have a history of glaucoma, her ocular pressure was assessed and is 17 on the right and 18 on the left. She reports that her pressures normally 12 and 15 however, she is due for her eyedrops. Her blood pressure here did improve to 141/68, it was originally 178/98. CBC and BMP are unremarkable. She did just have her TSH checked a few weeks ago and it was WNL. I recommended that she continue to check her blood pressure daily, she does have an upcoming appointment with her PCP, they can discuss possible antihypertensives if needed. Recommended she follow-up with her senior gl accountant as well. On reexamination she is doing well, she feels well and would like to go home. She will be discharged home in stable condition. I have personally performed a face to face assessment of the patient and have reviewed the BRISA Note. I performed a substantive portion of the visit including all aspects of the following. My hutchison findings include: History is patient is a very pleasant 74-year-old female with history of chronic low back pain and left hip pain who recently had an injection of steroid into her left hip. She reports a history of steroid induced glaucoma but her senior gl accountant (Dr. Santo) and pain management doctor have felt that joint injections and not systemic steroids are safe. She had a shot before the weekend on Saturday, 2 days ago. She has noticed that since then she has had episodes of her heart racing and elevated blood pressures up to 170 systolic. She has had episodes of flushing and feeling hot. She has had head pressure and pressure behind her eyes. She denies any associated chest pain. She states her normal eye pressures are OD 12 and OS 15. She came in for further evaluation of her symptoms. Differential includes not limited to hypertension, steroid side effect, allergic reaction, acute angle glaucoma, hypertensive emergency. Patient does not report any fevers associated for infectious etiology. Workup for elevated blood pressure and her palpitations/arrhythmia obtained. CBC, BMP are largely normal. Glucose is elevated at 140 but this is not consistent with any type of diabetic crisis. While in the ER patient's blood pressure improved without any intervention (goes from 178/98 to 141/68. Do question if there could be an anxiety component. It is possible that the steroids are exacerbating this. She had a recent normal TSH I do not think this needs to be rechecked. Low sufficient that she suddenly developed thyroid storm. Her eye pressures are 17 0D and 18 OS low suspicion for acute angle glaucoma for the cause of her eye pressure. Patient is feeling better on repeat examination. Given her reassuring workup, normal EKG and improvement of blood pressure she is comfortable with outpatient follow-up with primary care doctor. Is given return precautions. Encouraged follow-up with her PCP as well as her senior gl accountant. Discharged home in stable and improved condition. Other additions or changes: [None] Lab Data Labs: Laboratory Results - last 24 hr 02/07/25 11:40 WBC 10.6 RBC 4.24 Hgb 13.8 Hct 41.7 MCV 98.3 MCH 32.5 H MCHC 33.1 RDW Std Deviation 46.3 H RDW Coeff of Elian 13.0 Plt Count 292 MPV 10.3 Immature Gran % (Auto) 0.400 Neut % (Auto) 76.9 H Lymph % (Auto) 14.7 L Fountain % (Auto) 7.7 Eos % (Auto) 0.1 Baso % (Auto) 0.2 Absolute Neuts (auto) 8.2 H Absolute Lymphs (auto) 1.56 Nucleated RBC % 0 Sodium 138 Potassium 4.3 Chloride 103 Carbon Dioxide 23.5 Anion Gap 11 BUN 19 Creatinine 0.73 Estim Creat Clear Calc 54.79 Est GFR (MDRD) Non-Af 86 BUN/Creatinine Ratio 26.1 H Glucose 140 H Calcium 9.8 Discharge Plan Triage Chief Complaint: General Illness ED Midlevel Provider: Ceci Velazquez ED Provider: Maura Jimenez Dx/Rx/DC Orders Clinical Impression: Elevated blood pressure reading, History of glaucoma Instructions: ED Hypertension, To Be Confirmed Prescriptions: No Action clorazepate dipotassium 3.75 mg tablet 3.75 mg PO QHS PRN cinnamon bark [Cinnamon] 500 mg capsule PO biotin 1 mg capsule 1 mg PO DAILY ascorbic acid (vitamin C) 500 mg capsule PO omega-3 fatty acids [Fish Oil Concentrate] 1,000 mg capsule 1,000 mg PO DAILY cholecalciferol (vitamin D3) 2,000 unit capsule 2,000 unit PO DAILY vitamin B complex capsule 1 cap PO DAILY garlic 1,000 mg capsule 1,000 mg PO QPC aspirin [Adult Aspirin Regimen] 81 mg tablet,delayed release (DR/EC) 81 mg PO DAILY acetaminophen [Tylenol Arthritis Pain] 650 mg tablet extended release 650 mg PO Q8H loperamide [Imodium A-D] 2 mg capsule 2 mg PO Q6H calcium carbonate [Calcium 500] 500 mg calcium (1,250 mg) tablet,chewable 600 mg PO BID flurbiprofen 100 mg tablet 100 mg PO TID PRN (Reason: pain) Qty: 90 4RF magnesium 250 mg tablet 250 mg PO DAILY turmeric 400 mg capsule PO ginkgo biloba 40 mg tablet 40 mg PO DAILY Rx Instructions: give with meal/snack oxycodone-acetaminophen 5-325 mg tablet PO PRN alendronate 35 mg tablet 35 mg PO 2XW Qty: 30 1RF atorvastatin [Lipitor] 10 mg tablet 10 mg PO DAILY Qty: 90 2RF Primary Care Provider: Heather Krishnamurthy Referrals: Heather Krishnamurthy MD [Primary Care Provider] - 5-7 Days Activity Restrictions/Additional Instructions: Follow-up with your PCP and senior gl accountant, keep an eye on your blood pressure, return for any worsening symptoms. Print Language: Lithuanian Disposition Disposition: Home, Self Care Discharge Date/Time: 02/07/25 12:55
[2025-02-07 11:39] VITALS: BP 179/72; PULSE 68; RESP 13; O2SAT 97
[2025-02-07 11:46] LABS: Absolute Lymphocyte Count 1.56 X10^3/uL (0.83-4.51); Absolute Neutrophil Count 8.2 X10^3/uL (2.0-7.7); Basophil# 0.02 X10^3/uL; Basophil% 0.2 % (0-1); Eosinophil# 0.01 X10^3/uL; Eosinophils% 0.1 % (0-5); Hematocrit 41.7 % (37-47); Hemoglobin 13.8 g/dL (12.0-15.0); Lymphocyte # 1.56 X10^3/ul (0.83-4.51); Lymphocyte % 14.7 % (19-41); Mean Corp Hgb Conc 33.1 g/dL (32-36); Mean Corpuscular Hgb 32.5 pg (27.0-32.0); Mean Corpuscular Volume 98.3 fL (81-99); Mean Platelet Vol. 10.3 fl (6.2-12.0); Monocyte# 0.82 X10^3/uL; Monocyte% 7.7 % (0-10); NRBC Flagged by Analyzer 0 % (0-5); Neutrophil # 8.16 X10^3/uL (2.7-7.7); Neutrophil % 76.9 % (47-70); Platelet Count 292 K/mm3 (150-450); RBC Distribution Width SD 46.3 fl (35.1-43.9); Red Blood Count 4.24 M/mm3 (4.2-5.4); White Blood Count 10.6 K/mm3 (4.4-11.0)
[2025-02-07 12:05] LABS: Anion Gap 11 (5-15); BUN 19 mg/dL (4-19); BUN/Creat Ratio 26.1 RATIO (10-20); Calcium,Total 9.8 mg/dL (7.6-11.0); Carbon Dioxide 23.5 mmol/L (21.0-32.0); Chloride 103 mmol/L (98-108); Creatinine, Serum 0.73 mg/dL (0.70-1.20); EST Glomerular Filtration Rate 86 (>60); Estimated Creatinine Clearance 54.79 ml/min (50-250); Glucose 140 mg/dL (70-99); Potassium 4.3 mmol/L (3.3-5.1); Sodium Level 138 mmol/L (133-145)
[2025-02-07 12:12] VITALS: BP 141/68; PULSE 60; RESP 15; O2SAT 99
--- NOTE | 2025-02-07 12:20 | CM.ED ---
Social Work: Date of referral: 02/07/25 Reason for referral: No ACD's on file Referred by: Social Work identification Patient provided consent to social work visit. Waste Transportation Technician requested patient to bring a copy of her advanced care directives to the ED next time patient is out and about in the community which patient stated she would do. No additional needs/follow up requested at this time. Toya Karimi, TEACHER VOCATIONAL TRAINING, BINDERY SUPERVISOR
[2025-02-07 12:52] VITALS: BP 141/68; PULSE 59; RESP 20; TEMP 36.6; O2SAT 98
== END 2025-02-07 12:55 | disposition home or self-care (01) ==
PROVIDERS: Physician Assistant; Emergency Provider Emergency Medicine; PCP Internal Medicine; Visit Provider Emergency Medicine
DX: R03.0 Elevated blood-pressure reading, without diagnosis of hypertension (principal); I25.10 Atherosclerotic heart disease of native coronary artery without angina pectoris; Z86.69 Personal history of other diseases of the nervous system and sense organs
CPT/HCPCS: 80048; 85025; 93005; 99283; A4216

== ENCOUNTER → 2025-03-10 | Outpatient (CLI) | payer MEDICARE, SELFPAY ==
--- NOTE | 2025-03-10 15:22 | BI_ITS ---
EXAM: SCRN MAMM (CAD)W/JUAN J BILAT DATE: 03/10/2025 CLINICAL HISTORY: F, Age 74 y/o , SCREENING MAMMOGRAM FOR BREAST CANCER TECHNIQUE: SCRN MAMM (CAD)W/JUAN J BILAT COMPARISON: None available FINDINGS: TISSUE DENSITY: There are scattered areas of fibroglandular density. Bilateral Breast Mammographic Findings: No suspicious masses, calcifications or other abnormalities are identified. BI/SCRN MAMM (CAD)W/JUNA J BILAT IMPRESSION: No mammographic evidence of malignancy in either breast OVERALL FINAL ASSESSMENT BI-RADS 1: NEGATIVE. RECOMMEND ANNUAL MAMMOGRAPHIC SCREENING. RECOMMENDATION: Routine annual follow-up in 1 Year A letter with findings and recommendations will be mailed to the patient. Reading Location: [id number]
== END | disposition home or self-care (01) ==
LOC: OPBI 15:17
PROVIDERS: PCP Internal Medicine; Referring Provider Nurse Practitioner Women's Health; Visit Provider Nurse Practitioner Women's Health
DX: Z12.31 Encounter for screening mammogram for malignant neoplasm of breast (principal)
CPT/HCPCS: 77063; 77067

== ENCOUNTER → 2025-03-25 | Outpatient (CLI) | payer MEDICARE, SELFPAY ==
[2025-03-25 12:06] LABS: Hematocrit 40.4 % (37-47); Hemoglobin 13.2 g/dL (12.0-15.0); Immature Granulocytes Count 0.030 X10^3/uL (0.0-0.0); Mean Corp Hgb Conc 32.7 g/dL (32-36); Mean Corpuscular Volume 100.0 fL (81-99); Mean Platelet Vol. 10.7 fl (6.2-12.0); NRBC Flagged by Analyzer 0 % (0-5); Platelet Count 273 K/mm3 (150-450); RBC Distribution Width CV 12.3 % (11.6-14.6); RBC Distribution Width SD 45.4 fl (35.1-43.9); Red Blood Count 4.04 M/mm3 (4.2-5.4); White Blood Count 8.4 K/mm3 (4.4-11.0)
[2025-03-25 13:00] LABS: AST(SGOT) 28 U/L (<=31); Alanine Aminotransfer ALT/SGPT 21 U/L (<=34); Albumin, Serum 4.2 g/dL (3.4-4.8); Alkaline Phosphatase 69 U/L (35-104); Anion Gap 10 (5-15); BUN 13 mg/dL (4-19); BUN/Creat Ratio 19.6 RATIO (10-20); Calcium,Total 9.6 mg/dL (7.6-11.0); Carbon Dioxide 24.6 mmol/L (21.0-32.0); Chloride 105 mmol/L (98-108); Cholesterol 162 mg/dL (<=200); Globulin 3.5 g/dL (2.2-4.2); Glucose 99 mg/dL (70-99); Low Density Lipoprotein Calc. 49 mg/dL; Potassium 4.5 mmol/L (3.3-5.1); Triglycerides 57 mg/dL; Very Low Density Lipoprotein 11 mg/dL (5-40); cholesterol:hdl ratio screen 1.59
[2025-03-25 13:02] LABS: Vitamin B12 1363 pg/mL (180-914); Vitamin D,25 Hydroxy 51.4 ng/mL (30-100)
== END | disposition home or self-care (01) ==
LOC: BIMLAB 09:32
PROVIDERS: PCP Internal Medicine; Visit Provider Internal Medicine
DX: M85.80 Other specified disorders of bone density and structure, unspecified site (principal); Z13.6 Encounter for screening for cardiovascular disorders; I77.9 Disorder of arteries and arterioles, unspecified; K21.9 Gastro-esophageal reflux disease without esophagitis; R43.0 Anosmia; R43.2 Parageusia
CPT/HCPCS: 36415; 80053; 80061; 82306; 82607; 85025

== ENCOUNTER → 2025-04-13 | Outpatient (CLI) | payer MEDICARE, SELFPAY ==
[2025-04-13 10:11] LABS: Mucous, Urine 0 SEEN /hpf (<or=2+); Red Blood Cells-Urine 0 SEEN /hpf (0-5)
[2025-04-13 14:17] LABS: Color, Urine Yellow (Yellow); Glucose, Dipstick Normal (Normal); Ketone-Dipstick Negative (Negative); Leukocyte Esterase-Dipstick Negative /ul (Negative); Nitrite-Dipstick Negative (Negative); Occult Blood-Urine Negative /ul (Negative); Protein-Dipstick Negative (Negative); Specific Gravity, Urine 1.010 (1.002-1.030); Urine Bilirubin Dipstick Negative (Negative)
[2025-04-13 14:31] LABS: Squamous Epithelial Cells - UA 0-5 SEEN /hpf (5-10)
== END | disposition home or self-care (01) ==
LOC: MTLAB 09:55
PROVIDERS: PCP Internal Medicine; Referring Provider Internal Medicine; Visit Provider Internal Medicine
DX: M54.50 Low back pain, unspecified (principal); R32 Unspecified urinary incontinence; R39.15 Urgency of urination
CPT/HCPCS: 81001

== ENCOUNTER → 2025-07-19 | Outpatient (CLI) | payer MEDICARE, SELFPAY ==
[2025-07-19 18:08] LABS: Anion Gap 11 (5-15); BUN 18 mg/dL (4-19); BUN/Creat Ratio 27.4 RATIO (10-20); Calcium,Total 9.7 mg/dL (7.6-11.0); Carbon Dioxide 23.7 mmol/L (21.0-32.0); Chloride 104 mmol/L (98-108); Glucose 103 mg/dL (70-99); Potassium 4.3 mmol/L (3.3-5.1)
[2025-07-19 18:13] LABS: CRP 7.75 mg/L (0.0-3.0)
[2025-07-22 11:08] LABS: ANTINUCLEAR ANTIBODIES DIRECT Negative (Negative)
== END | disposition home or self-care (01) ==
LOC: MTLAB 14:55
PROVIDERS: PCP Internal Medicine; Referring Provider Internal Medicine; Visit Provider Internal Medicine
DX: M19.90 Unspecified osteoarthritis, unspecified site (principal)
CPT/HCPCS: 36415; 80048; 85652; 86038; 86140; 86200; 86225; 86431